=== PATIENT | female | born 1985 | race Caucasian/White ===

== ENCOUNTER → 2017-09-18 | Outpatient (CLI) | payer BC ==
[~2017-09-18] MED LIST: KETOROLAC10 MG PO; MOTRIN800 MG PO
[2017-09-18 14:14] LABS: HEMATOCRIT 37.5 % (37.0-47.0); HEMOGLOBIN 12.5 g/dl (12.0-16.0); MEAN CELL VOLUME 87.4 fl (81.0-99.0); MEAN CORPUSCULAR HGB 29.1 pg (27.0-31.0); MEAN CORPUSCULAR HGB CONC 33.3 g/dl (33.0-37.0); MEAN PLATELET VOLUME 9.8 fl (9.6-12.3); RED BLOOD COUNT 4.29 10*6/uL (4.10-5.10); RED CELL DISTRI WIDTH 13.5 % (0-14.5); WHITE BLOOD COUNT 5.3 10*3/uL (4.8-10.8)
[2017-09-18 14:22] LABS: ALBUMIN 3.6 gm/dl (3.1-4.5); ALKALINE PHOSPHATASE 28 U/L (45-117); BUN 12 mg/dl (7-24); CHLORIDE 105 mmol/L (98-107); CHOLESTEROL 139 mg/dL (<200); CREATININE 0.66 mg/dL (0.55-1.02); HDL CHOLESTEROL 67 mg/dl (40-60); LDL CHOLESTEROL 64 mg/dL (9-159); SGOT/AST 12 IU/L (3-35); SGPT/ALT 16 U/L (12-78); SODIUM 139 mmol/L (136-145); TOTAL PROTEIN 6.8 gm/dL (6.4-8.2); TRIGLYCERIDES 42 mg/dl (<150); VLDL CHOLESTEROL 8 mg/dL (6-40)
[2017-09-18 14:28] LABS: THYROID STIM HORMONE (HS) 0.599 uIU/ml (0.358-4.75)
[2017-09-18 14:41] LABS: VITAMIN D, 25-HYDROXY 38.6 ng/mL (30-100)
== END | disposition home or self-care (01) ==
LOC: LAB 13:12
PROVIDERS: Registered Nurse Flight
DX: R53.83 Other fatigue (principal)

== ENCOUNTER → 2018-01-19 | Outpatient (CLI) | payer BC | END | disposition home or self-care (01) | LOC: RAD 19:27 | DX: L03.313 Cellulitis of chest wall (principal); R06.02 Shortness of breath; R07.9 Chest pain, unspecified ==

== ENCOUNTER 2021-01-08 08:32 | Emergency (ER) | payer BC ==
[~2021-01-08] VITALS: Wt 68.0 kg
[2021-01-08 08:49] LABS: BASO % 0.7 % (0.0-1.0); EOS # 0.1 10*3/uL (0.0-0.4); EOS % 1.8 % (1.0-4.0); HEMATOCRIT 39.6 % (37.0-47.0); LYMPH # 1.3 10*3/uL (1.3-4.4); LYMPH % 30.3 % (27.0-41.0); MEAN CELL VOLUME 80.7 fl (81.0-99.0); MEAN CORPUSCULAR HGB 25.3 pg (27.0-31.0); MEAN CORPUSCULAR HGB CONC 31.3 g/dl (33.0-37.0); MEAN PLATELET VOLUME 8.7 fl (9.6-12.3); MONO # 0.6 10*3/uL (0.1-1.0); MONO % 12.5 % (3.0-9.0); NEUT # 2.4 10*3/uL (2.3-7.9); NEUT % 54.5 % (47.0-73.0); PLATELET COUNT AUTOMATED 281 10*3/uL (130-400); RED BLOOD COUNT 4.91 10*6/uL (4.10-5.10); RED CELL DISTRI WIDTH 14.7 % (0-14.5); WHITE BLOOD COUNT 4.4 10*3/uL (4.8-10.8)
[2021-01-08 09:05] LABS: ALBUMIN 3.6 gm/dl (3.1-4.5); ALKALINE PHOSPHATASE 37 U/L (45-117); BUN 11 mg/dl (7-24); CHLORIDE 106 mmol/L (98-107); CREATININE 0.73 mg/dL (0.55-1.02); INTERNATIONAL NORM RATIO 0.9 (2.0-3.5); POTASSIUM 3.3 mmol/L (3.5-5.1); SGOT/AST 9 IU/L (3-35); SGPT/ALT 16 U/L (12-78); SODIUM 136 mmol/L (136-145); TOTAL PROTEIN 7.4 gm/dL (6.4-8.2)
[2021-01-08 09:11] LABS: TROPONIN I < 0.015 ng/ml (<0.045)
== END 2021-01-08 11:58 | disposition home or self-care (01) ==
LOC: ED 08:32
PROVIDERS: Family Medicine
DX: R07.89 Other chest pain (principal); F41.9 Anxiety disorder, unspecified; Z79.899 Other long term (current) drug therapy; Z98.51 Tubal ligation status

== ENCOUNTER 2021-12-13 10:52 | Emergency (ER) | payer BC ==
[~2021-12-13] VITALS: Wt 79.4 kg
[2021-12-13 11:31] LABS: BASO % 0.5 % (0.0-1.0); EOS # 0.1 10*3/uL (0.0-0.4); EOS % 1.8 % (1.0-4.0); HEMATOCRIT 41.8 % (37.0-47.0); LYMPH # 1.2 10*3/uL (1.3-4.4); LYMPH % 21.6 % (27.0-41.0); MEAN CELL VOLUME 90.1 fl (81.0-99.0); MEAN CORPUSCULAR HGB 29.7 pg (27.0-31.0); MEAN PLATELET VOLUME 9.1 fl (9.6-12.3); MONO # 0.6 10*3/uL (0.1-1.0); NEUT # 3.7 10*3/uL (2.3-7.9); NEUT % 65.7 % (47.0-73.0); PLATELET COUNT AUTOMATED 268 10*3/uL (130-400); RED BLOOD COUNT 4.64 10*6/uL (4.10-5.10); RED CELL DISTRI WIDTH 12.9 % (0-14.5); WHITE BLOOD COUNT 5.6 10*3/uL (4.8-10.8)
[2021-12-13 11:47] LABS: ALBUMIN 3.4 gm/dl (3.1-4.5); ALKALINE PHOSPHATASE 33 U/L (45-117); BUN 9 mg/dl (7-24); CHLORIDE 107 mmol/L (98-107); CREATININE 0.67 mg/dL (0.55-1.02); LIPASE 142 U/L (73-393); SGOT/AST 11 IU/L (3-35); SGPT/ALT 15 U/L (12-78); SODIUM 139 mmol/L (136-145); TOTAL PROTEIN 6.9 gm/dL (6.4-8.2)
[2021-12-13 12:20] LABS: BILIRUBIN Negative (Negative); BLOOD 3+ (Negative); CLARITY Clear (Clear); COLOR Red (Yellow); GLUCOSE Negative (Negative); KETONE Negative (Negative); LEUKO ESTERASE 2+ (Negative); NITRITE Negative (Negative)
[2021-12-13 12:25] LABS: BACTERIA 2+
[2021-12-13 12:26] LABS: RBC TNTC rbc/hpf (0-2)
[2021-12-13] MEDS ORDERED: REGLAN10 M1 PO (13:13)
== END 2021-12-13 13:45 | disposition home or self-care (01) ==
LOC: ED 10:52
PROVIDERS: Emergency Medicine
DX: K59.00 Constipation, unspecified (principal); R11.10 Vomiting, unspecified; Z98.51 Tubal ligation status

== ENCOUNTER → 2022-01-08 | Outpatient (CLI) | payer BC ==
[~2022-01-08] MED LIST changes: +REGLAN10 M1 PO
== END | disposition home or self-care (01) ==
LOC: RAD 15:09
PROVIDERS: ATTEND Nurse Practitioner Primary Care
DX: K59.00 Constipation, unspecified (principal)

== ENCOUNTER 2023-06-05 21:31 | Emergency (ER) | payer BC ==
[~2023-06-05] VITALS: Ht 154.9 cm; Wt 81.6 kg
[2023-06-05] MEDS ORDERED: NAPROXEN250 MG PO (22:50)
== END 2023-06-05 23:39 | disposition home or self-care (01) ==
LOC: ED 21:31
DX: S80.02XA Contusion of left knee, initial encounter (principal); Z79.899 Other long term (current) drug therapy; Z98.51 Tubal ligation status; V86.59XA Driver of other special all-terrain or other off-road motor vehicle injured in nontraffic accident, initial encounter; Y93.I9 Activity, other involving external motion; Y92.488 Other paved roadways as the place of occurrence of the external cause; Y99.8 Other external cause status

== ENCOUNTER 2025-09-09 13:10 | Emergency (ER) | payer BC ==
[~2025-09-09] VITALS: Ht 154.9 cm; Wt 73.9 kg
[~2025-09-09 13:10] MED LIST changes: +NAPROXEN250 MG PO
[2025-09-09] MEDS ORDERED: Lidocaine Hydrochloride 2% 10 ML AMP SC ONE (13:55)
[2025-09-09] MEDS ORDERED: Tdap Vaccine 0.5 ML SYR (Adult Vaccine) IM ONE (13:55)
[2025-09-09] MEDS ORDERED: Bacitracin Zinc/Polymyxin B 15 GM TUBE T ONE (14:35)
[2025-09-09] MEDS ORDERED: Bacitracin Zinc 14 GM TUBE T ONE (14:45)
[2025-09-09] MEDS ORDERED: MUPIROCIN 15 GM TUBE T ONE (14:45)
== END 2025-09-09 15:03 | disposition home or self-care (01) ==
LOC: ED 13:10
DX: S51.812A Laceration without foreign body of left forearm, initial encounter (principal); W45.8XXA Other foreign body or object entering through skin, initial encounter; Y93.G1 Activity, food preparation and clean up; Y92.89 Other specified places as the place of occurrence of the external cause; Y99.8 Other external cause status